=== PATIENT | male | born 1960 | race African-American/Black ===

== ENCOUNTER 2023-01-01 08:00 | Emergency (ER) | payer SELFPAY ==
[2023-01-01 08:20] LABS: Lymphocytes % 19.4 % (15.3-44.8); MCV 94.3 fL (80-100); RBC Red Blood Cell Count 4.35 M/uL (4.33-5.43)
[2023-01-01 08:27] LABS: Protime INR 0.77
[2023-01-01] MEDS ORDERED: LABETALOL 20 MG/4ML SYRINGE IV ONE (08:28)
[2023-01-01 08:39] LABS: Potassium 4.6 mEq/L (3.5-5.1)
[2023-01-01 08:41] LABS: Troponin High Sensitivity 197.5 pg/mL (<58.9)
--- NOTE | 2023-01-01 08:42 | RAD REPORT ---
EXAM DESCRIPTION: CT - Ct Stroke Brain Wo Cont - 01/01/2023 8:30 am CLINICAL HISTORY: STROKE ALERT COMPARISON: Head angio dated 01/01/2023 TECHNIQUE: All CT scans are performed using dose optimization technique as appropriate and may inclu de automated exposure control or mA/KV adjustment according to patient size. FINDINGS: No intracranial hemorrhage, hydrocephalus or extra-axial fluid collection.With benefit of the CTA for comparison, there is loss of modi-white differentiation along the right frontal lobe and in the insular region. Small left age indeterminate parietal lobe cortical infarct. The paranasal sinuses and mastoids are clear. The calvarium is intact. IMPRESSION: Vague loss of cortical differentiation in the right frontal lobe and at the right subins ular region corresponding with a known right M1 MCA occlusion. Age indeterminate small left parietal lobe infarct. No acute intracranial hemorrhage. Discussed with Dr. Baltazar by Dr Thania yoon at 829 am.
--- NOTE | 2023-01-01 08:46 | RAD REPORT ---
EXAM DESCRIPTION: CT - Head angio - 01/01/2023 8:30 am CLINICAL HISTORY: left sided weaknes COMPARISON: Ct Stroke Brain Wo Cont dated 01/01/2023 TECHNIQUE: CT angiography of the head was performed with maximum intensity reformatted images. All CT scans are performed using dose optimization technique as appropriate and may include automated exposure control or mA/KV adjustment according to patient size. FINDINGS: Anterior circulation: Right M1 MCA occlusion with diminished arterial flow throughout much of the right frontal lobe. The l eft middle cerebral artery and both anterior cerebral arteries are patent. No aneurysm is identified. Posterior circulation: No aneurysm or large vessel occlusion. No hemodynamically significant stenosis. No arteriovenous malf ormation identified. IMPRESSION: Right M1 segment MCA occlusion. Findings discussed with Dr. Baltazar by Dr. Monterio at 0830 on 01/01/23
--- NOTE | 2023-01-01 08:47 | RAD REPORT ---
EXAM DESCRIPTION: CT - Neck Angio - 01/01/2023 8:30 am CLINICAL HISTORY: *Portable;Numbness COMPARISON: No comparisons TECHNIQUE: CT angiography of the neck vessels was performed with maximum intensity reformatted image s. All CT scans are performed using dose optimization technique as appropriate and may include automated exposure control or mA/KV adjustment according to patient size. FINDINGS: A left aortic arch is identified with normal three vessel configuration of the great vesse ls. No significant flow abnormality is seen of the common carotid bilaterally. No significant stenosis is identified involving the cervical segments of both internal carotid arteri es. Normal flow is seen within both vertebral arteries. IMPRESSION: No significant flow abnormality of the neck vessels is identified.
--- NOTE | 2023-01-01 08:55 | EDPHYS ---
Physician Documentation [facility] Name: Jim Stephens Age: 62 yrs Sex: Male : 1960 Arrival Date: 01/01/2023 Time: 08:00 Bed 7 Private MD: ED Physician Beni Baltazar HPI: 01/01 08:34 This 62 yrs old Black Male presents to ER via Wheelchair with complaints of S/S of bs3 Possible Stroke. 08:34 Unable to obtain HPI due to altered mental status. 62-year-old male brought in by his bs3 cousin for altered mental status per the cousin he was last seen normal at approximately 2:40 AM when they went to bed he was drinking last night but his cousin heard a loud noise at about 4 AM and saw him in the garage and he had weakness and he was therefore brought in. History is limited secondary to condition and mental status but per family member who I spoke with on the phone they do not know of any medical problems. . Historical: - Allergies: 08:41 No Known Allergies; ld1 - Home Meds: 08:41 None [Active]; ld1 - PMHx: 08:41 None; ld1 - PSHx: 08:41 None; ld1 - Immunization history:: Adult Immunizations up to date. - Social history:: Smoking status: unknown Patient uses alcohol, on a daily basis. ROS: 08:34 Constitutional: Negative for fever, chills bs3 08:34 Unable to obtain ROS due to altered mental status. Exam: 08:34 Radiologist reports: no ich, M1 occlusion bs3 08:34 Constitutional: The patient appears agitated. 08:34 Chest/axilla: Exam negative for cellulitis, crepitus, deformity, Inspection: Palpation: is normal. 08:34 Cardiovascular: Exam negative for acute changes, edema. 08:34 Respiratory: Exam negative for the patient does not display signs of respiratory distress. 08:34 Abdomen/GI: Exam negative for acute changes, abnormal bowel sounds. 08:44 Normal sinus at [address] elevation or depression QTc 444 as interpreted by myself bs3 08:44 Musculoskeletal/extremity: Exam is negative for acute changes, bony tenderness, calf tenderness. 08:44 Neuro: He has left-sided weakness with left-sided neglect. 08:55 Constitutional: This is a well developed, well nourished patient who is awake, alert, bs3 and in no acute distress. Cardiovascular: Regular rate and rhythm with a normal S1 and S2. symmetric pulses in upper extremities Respiratory: Lungs have equal breath sounds bilaterally, clear to auscultation, no respiratory distress Abdomen/GI: Soft, non-tender, no rebound or guarding Back: No spinal tenderness. No costovertebral tenderness. Full range of motion. Skin: Warm, dry with normal turgor. Normal color with no rashes, no lesions, and no evidence of cellulitis. MS/ Extremity: Pulses equal, no cyanosis. Neurovascular intact. Full, normal range of motion. Vital Signs: 08:37 BP 228 / 128; Pulse 111; Resp 20; Temp 97.6(TE); Pulse Ox 99% on R/A; ld1 08:41 Weight 63.96 kg; ld1 08:41 Height 5 ft. 8 in. ; ld1 08:44 BP 153 / 92; Pulse 84; Resp 10; Pulse Ox 98% on R/A; ld1 08:57 BP 134 / 77; Pulse 81; Resp 16; Pulse Ox 99% on R/A; ld1 09:16 BP 134 / 79; Pulse 80; Resp 18; Pulse Ox 99% on R/A; ld1 08:41 Body Mass Index 21.44 (63.96 kg, 172.72 cm) ld1 MDM: 08:05 Patient medically screened. bs3 08:34 Data reviewed: vital signs, nurses notes. bs3 08:44 Differential diagnosis: CVA, TIA, metabolic disorder, drug effects. Data reviewed: bs3 vital signs, nurses notes. Management of patient was discussed with the following: Machine [employer] Sander: Neuro intervention. ED course: Discussed with radiology who confirmed M1 occlusion, immediately called transfer center, d/w neuro at [facility] who agreed with plan, pt was given labetelol for sbp 220, goal of sbp <200, attempted to fly pt to [facility], but no availability due to weather, will transfer immediately by [facility]. 01/01 08:06 Order name: Basic Metabolic Panel; Complete Time: 08:41 bs3 01/01 08:06 Order name: CBC with Diff; Complete Time: 08:41 bs3 01/01 08:06 Order name: High Sensitivity Troponin; Complete Time: 08:41 bs3 01/01 08:06 Order name: Protime (+inr); Complete Time: 08:41 bs3 01/01 08:06 Order name: Ptt, Activated; Complete Time: 08:41 bs3 01/01 08:06 Order name: Ethanol; Complete Time: 08:41 3 01/01 08:17 Order name: Glucose, Ancillary Testing; Complete Time: 08:41 EDMS 01/01 08:06 Order name: CT Stroke Brain w/o Contrast rust 01/01 08:06 Order name: Stroke CXR 1 View 3 01/01 08:06 Order name: CT Head Angio 3 01/01 08:06 Order name: CT Neck Angio rust 01/01 08:06 Order name: EKG; Complete Time: 08:07 3 01/01 08:06 Order name: Accucheck; Complete Time: 08:09 3 01/01 08:06 Order name: Cardiac monitoring; Complete Time: 08:44 3 01/01 08:06 Order name: EKG - Nurse/Tech; Complete Time: 08:44 3 01/01 08:06 Order name: IV Saline Lock; Complete Time: 08:09 3 01/01 08:06 Order name: Labs collected and sent; Complete Time: 08:09 3 01/01 08:06 Order name: NPO; Complete Time: 08:09 3 01/01 08:06 Order name: O2 Per Protocol; Complete Time: 08:09 3 01/01 08:06 Order name: O2 Sat Monitoring; Complete Time: 08:09 3 01/01 08:06 Order name: Stroke Swallow Screen; Complete Time: 08:44 bs3 Administered Medications: 08:25 Drug: Labetalol IV 10 mg Route: IV; Rate: bolus; Site: right antecubital; ld1 08:40 Drug: Labetalol IV 10 mg Route: IV; Rate: bolus; Site: right antecubital; ld1 Point of Care Testing: Blood Glucose: 08:05 Blood Glucose: 117 mg/dL; ld1 Ranges: Critical Glucose Levels:Adult <50 mg/dl or >400 mg/dl <40 mg/dl or >180 mg/dl Disposition Summary: 01/01/23 08:55 Transfer Ordered Transfer Location: [facility] bs3 Reason: Higher level of care bs3 Condition: Critical bs3 Problem: new bs3 Symptoms: are unchanged bs3 Accepting Physician: Dr. 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 Total time: 70 bs3 minutes Signatures: Dispatcher [employer] EDLizett Tabares RN RN ld1 Beni Baltazar MD MD bs3 Corrections: (The following items were deleted from the chart) 09:18 08:55 Dr. Chaparro bs3 ld1
--- NOTE | 2023-01-01 08:55 | ER ---
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 Last known hb normal was approx 0240 today. Coronavirus screen: At this time, the client does not indicate any symptoms associated with coronavirus-19. Ebola Screen: No symptoms or risks identified at this time. Initial Sepsis Screen: Does the patient meet any 2 criteria? No. Patient's initial sepsis screen is negative. Does the patient have a suspected source of infection? No. Patient's initial sepsis screen is negative. Risk Assessment: Do you want to hurt yourself or someone else? Patient reports no desire to harm self or others. Onset of symptoms was January 01, 2023 at 02:40. 08:00 Method Of Arrival: Wheelchair hb Triage Assessment: 08:30 General: Appears in no apparent distress. comfortable, Behavior is agitated, anxious, ld1 fussy. Pain: Denies pain. EENT: No signs and/or symptoms were reported regarding the EENT system. Neuro: Level of Consciousness is awake, confused, Oriented to none Weakness in left hand(s) leg(s) Gait is unsteady, Pupils are gazing towards the right. Cardiovascular: Capillary refill < 3 seconds Patient's skin is warm and dry. Respiratory: Airway is patent Respiratory effort is even, unlabored. GI: Abdomen is flat, non-distended. : No signs and/or symptoms were reported regarding the genitourinary system. Derm: No signs and/or symptoms reported regarding the dermatologic system. Historical: - Allergies: 08:41 No Known Allergies; ld1 - Home Meds: 08:41 None [Active]; ld1 - PMHx: 08:41 None; ld1 - PSHx: 08:41 None; ld1 - Immunization history:: Adult Immunizations up to date. - Social history:: Smoking status: unknown Patient uses alcohol, on a daily basis. Screenin:32 [facility] ED Fall Risk Assessment (Adult) History of falling in the last 3 months, ld1 including since admission Yes- single mechanical fall (1 pt). Abuse screen: Denies threats or abuse. Denies injuries from another. Nutritional screening: No deficits noted. Tuberculosis screening: No symptoms or risk factors identified. Assessment: 07:59 Reassessment: CODE STROKE CALLED, PT TO CT. hb 08:32 Reassessment: See triage assessment. Pt back from CT at this moment. ERP at bedside. ld1 08:41 Reassessment: TROP 197.5. DR FRANKLIN NOTIFIED. hb Vital Signs: 08:37 BP 228 / 128; Pulse 111; Resp 20; Temp 97.6(TE); Pulse Ox 99% on R/A; ld1 08:41 Weight 63.96 kg; ld1 08:41 Height 5 ft. 8 in. ; ld1 08:44 BP 153 / 92; Pulse 84; Resp 10; Pulse Ox 98% on R/A; ld1 08:57 BP 134 / 77; Pulse 81; Resp 16; Pulse Ox 99% on R/A; ld1 09:16 BP 134 / 79; Pulse 80; Resp 18; Pulse Ox 99% on R/A; ld1 08:41 Body Mass Index 21.44 (63.96 kg, 172.72 cm) ld1 ED Course: 08:05 Patient arrived in ED. eb 08:05 Beni Franklin MD is Attending Physician. bs3 08:12 Inserted saline lock: 18 gauge in right antecubital area, using aseptic technique. kr3 Blood collected. 08:28 Lizett Diaz, SAVANNAH is Primary Nurse. ld1 08:28 Triage completed. hb 08:29 Arm band placed on. hb 08:32 CT Stroke Brain w/o Contrast In Process Unspecified. EDMS 08:32 CT Head Angio In Process Unspecified. EDMS 08:32 CT Neck Angio In Process Unspecified. EDMS 08:32 Patient has correct armband on for positive identification. Placed in gown. Bed in low ld1 position. Call light in reach. Side rails up X2. nba player on. Pulse ox on. NIBP on. Door closed. Noise minimized. Warm blanket given. 08:32 initiated a transfer with Miriamt from the [facility]. eb 08:[address] Blanc the neuro director medical economics for [facility] with Dr. Franklin for patient eb transfer consultation. 08:42 administrative approval given by Judith Joaquin Rn/ patient has been accepted to [facility] Rm [id number]/ Dr. En Blanc has accepted the patient in transfer/ report to be called to [phone]. 08:44 attempted to call [facility] but they aren't flying due to weather. eb 08:46 [facility] called. eb 08:58 Stroke CXR 1 View In Process Unspecified. EDMS 09:17 No provider procedures requiring assistance completed. Patient transferred, IV remains ld1 in place. Administered Medications: 08:25 Drug: Labetalol IV 10 mg Route: IV; Rate: bolus; Site: right antecubital; ld1 08:40 Drug: Labetalol IV 10 mg Route: IV; Rate: bolus; Site: right antecubital; ld1 Medication: 09:17 VIS not applicable for this client. ld1 Point of Care Testing: Blood Glucose: 08:05 Blood Glucose: 117 mg/dL; ld1 Ranges: Outcome: 08:55 ER care complete, transfer ordered by . bs3 09:17 Transferred by ground EMS to [facility]. ld1 09:17 Condition: unchanged 09:17 Instructed on the need for transfer. 09:18 Patient left the ED. ld1 Signatures: Dispatcher [employer] EDMS Karo Montoya RN RN hb Botello, Elizabeth eb Sims, Lauren, RN RN ld1 Angela Villar RN RN kr3 Beni Franklin MD MD bs3 Corrections: (The following items were deleted from the chart) 08:29 08:00 Onset of symptoms was January 01, 2023 at 04:00 hb hb
--- NOTE | 2023-01-01 09:06 | RAD REPORT ---
EXAM DESCRIPTION: RAD - Chest Single View - 01/01/2023 8:57 am CLINICAL HISTORY: CONGESTION COMPARISON: <Comparisons> FINDINGS: Lines: None. Lungs: No evidence of edema or pneumonia. Pleural: No significant pleural effusions or pneumothorax. Cardiac: The heart size is within normal limits. Mediastinum: Within normal limits. Bones: No acute fractures. Other: None IMPRESSION: No acute cardiopulmonary disease.
[2023-01-01 09:41] VITALS: TEMP 97.6
[2023-01-01 09:44] VITALS: O2SAT 99
[2023-01-01 09:45] VITALS: BP 134/79
--- NOTE | 2023-01-02 14:45 | EKG ---
Test Date: 2023-01-01 Test Time: 08:41:38 Corporate Training Manager: Luther Banks MEASUREMENT RESULTS: Intervals: Rate: 88 IN: 154 QRSD: 86 QT: 364 QTc: 440 [place]: P: 85 IN: 154 QRS: 14 T: 10 INTERPRETIVE STATEMENTS: Normal sinus rhythm Right atrial enlargement Borderline ECG No previous ECG available for comparison Electronically Signed On 01-02-23 14:43:27 CDT by Eric Lujan
== END 2023-01-01 09:18 | disposition short-term general hospital (02) ==
LOC: ER 08:00
DX: I63.9 Cerebral infarction, unspecified (principal)
CPT/HCPCS: 36415; 70450; 70496; 70498; 71045; 80048; 82565; 82947; 84484; 85025; 85610; 85730; 93005; 96374; 99285; G0480; Q9967